=== PATIENT | female | born 1990 | race Caucasian/White ===

== ENCOUNTER 2018-01-29 16:16 | Emergency (ER) | payer MEDICAID | END 2018-01-29 17:06 | disposition home or self-care (01) | LOC: FTE 17:06 | DX: J32.9 Chronic sinusitis, unspecified (principal) | CPT/HCPCS: 99283; Z7502 ==

== ENCOUNTER 2018-10-22 21:22 | Emergency (ER) | payer MEDICAID | END 2018-10-23 01:27 | disposition home or self-care (01) | LOC: FTE 10-23 01:27 | DX: J20.9 Acute bronchitis, unspecified (principal) | CPT/HCPCS: 71045; 99283-25 ==